=== PATIENT | male | born 1980 | race African-American/Black ===

== ENCOUNTER 2025-02-15 17:11 | Emergency (ER) | payer SELFPAY ==
[2025-02-15 17:14] VITALS: BP 133/84
[2025-02-15 18:38] VITALS: BP 130/91
[2025-02-15 19:15] VITALS: BMI 32.3
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
== END 2025-02-15 20:20 | disposition home or self-care (01) ==
LOC: EMR 17:11
PROVIDERS: EMERGENCY PHYSICIAN Emergency Medicine; FAMILY PHYSICIAN Internal Medicine
DX: S16.1XXA Strain of muscle, fascia and tendon at neck level, initial encounter (principal); V89.2XXA Person injured in unspecified motor-vehicle accident, traffic, initial encounter; Y92.410 Unspecified street and highway as the place of occurrence of the external cause
CPT/HCPCS: 99284; 70450; 72125; 73630; 93005